=== PATIENT | female | born 1955 | race Caucasian/White ===

== ENCOUNTER → 2017-03-21 | Outpatient (CLI) | payer BC | END | disposition home or self-care (01) | LOC: GMAH 08:22 | PROVIDERS: ATTEND Family Medicine | DX: Z00.01 Encounter for general adult medical examination with abnormal findings (principal); E03.8 Other specified hypothyroidism ==

== ENCOUNTER → 2018-05-22 | Outpatient (CLI) | payer BC | LOC: GMAH 10:49 | PROVIDERS: ATTEND Family Medicine | DX: E03.8 Other specified hypothyroidism (principal) ==

== ENCOUNTER 2018-09-04 10:49 | Emergency (ER) | payer BC, OTHER ==
[2018-09-04 11:15] VITALS: TEMP 97.6
--- NOTE | 2018-09-04 11:26 | ED.PDOC ---
History of Present Illness - General Chief Complaint: Trauma Stated Complaint: Standing level fall with R arm/shoulder injury Time Seen by Provider: 09/04/18 11:20 Source: patient Exam Limitations: no limitations - History of Present Illness Initial Comments: Birgit Tate 63 y/o female came to ER with right sharp upper extremity pain after a fall at work.Stated while walking right shoes got suck on the floor lost her balance but able to brace herself with her right upper extremity to the floor but still fell and landed on her body.Denies head,neck.chest,hip leg ankle injuries but stated hurts mostly on her right shoulder joint and elbow.Denies any previous injuries in the past. Helped her get up by co-worker Timing/Duration: 1-3 hours Severity: moderate Improving Factors: rest Worsening Factors: movement Associated Symptoms: denies symptoms, other - see hpi Allergies/Adverse Reactions: Allergies Cephalexin Allergy (Verified 09/04/18 11:07) Penicillins Allergy (Verified 09/04/18 11:07) Home Medications: Ambulatory Orders Acetamin W/Cod #3 Tab [Tylenol w/CODEINE #3] 1 ea PO Q4HR PRN #30 tab 09/04/18 Calcium 600 mg PO DAILY 09/04/18 Clarithromycin 500 mg PO DAILY 09/04/18 Levothyroxine Sodium 75 mcg PO DAILY 09/04/18 Loratadine [Claritin] 10 mg PO PRN PRN 09/04/18 Metoprolol Tartrate [Lopressor] 50 mg PO DAILY 09/04/18 Niacin [Slo-Niacin] 500 mg PO DAILY 09/04/18 Review of Systems - Review of Systems Musculoskeletal: States: see HPI All other Systems: Reviewed and Negative, No Change from Baseline Past Medical History (General) - Patient Medical History Hx of COPD: No Hx Cardiac Disorders: No Hx Hypertension: Yes Hx Thyroid Disease: Yes Hx Cancer: Yes - skin Surgical History: appendectomy, tonsillectomy, other - c-sections - Vaccination History Hx Tetanus, Diphtheria Vaccination: No Hx Influenza Vaccination: No Hx Pneumococcal Vaccination: No - Social History Hx Tobacco Use: No Hx Alcohol Use: No Hx Substance Use: No Hx Substance Use Treatment: No Hx Depression: No - Female History Patient is a Female of Child Bearing Age (10 -59 yrs old): No Patient : No Family Medical History - Family History Father Living Status: Unknown Hx Cardiac Disease: Yes - dad Physical Exam - Physical Exam General Appearance: Alert, Comfortable, No apparent distress Eye Exam: bilateral normal Ears, Nose, Throat: normal ENT inspection Neck: non-tender, supple, normal inspection Respiratory: chest non-tender, lungs clear, normal breath sounds, no respiratory distress Cardiovascular/Chest: normal peripheral pulses, regular rate, rhythm, no murmur Peripheral Pulses: radial,right: 2+, radial,left: 2+ Gastrointestinal/Abdominal: non tender, soft Back Exam: no CVA tenderness, no vertebral tenderness Extremity: no pedal edema, no calf tenderness, pelvis stable, deformity - none, swelling - right shoulder joint, other - right upper Extremity-ROM limited because of pain shoulder joint,elbow and wrist,with swelling around right shoulder joint,right elbow and wrist no swelling noted.right foot/ankle no swelling noted Neurologic: alert, oriented x 3, other - neurovascular intact distally right upper extremity Skin Exam: normal color, warm/dry Progress - Progress Progress: 09/04/18 11:31 Vital Signs - 24 hr 09/04/18 11:07 Temperature 97.6 F Pulse Rate [L 73 finger] Respiratory 18 Rate Blood Pressure 140/74 [L arm] O2 Sat by Pulse 99 Oximetry - Results/Orders Results/Orders: Discuss result of shoulder x -ray with patient and want to call up insurance company for their Ortho Mds on the list - EKG/XRAY/CT XRAY: comminuted fracture right proximal shoulder - wrist-right -no fracture noted Departure - Departure Clinical Impression: Fracture, humerus, anatomical neck Qualifiers: Encounter type: initial encounter Fracture type: closed Laterality: right Qualified Code(s): S42.291A - Other displaced fracture of upper end of right humerus, initial encounter for closed fracture Fall Qualifiers: Encounter type: initial encounter Qualified Code(s): W19.XXXA - Unspecified fall, initial encounter Time of Disposition: 14:10 Disposition: Discharge to Home or Self Care Condition: Fair Departure Forms: ED Discharge - Pt. Copy, Patient Portal Self Enrollment Instructions: Shoulder Fracture, Shoulder Fracture (DC) Referrals: Vega Samaniego MD [Primary Care Provider] - 1-2 Weeks Prescriptions: Acetamin W/Cod #3 Tab [Tylenol w/CODEINE #3] 1 ea PO Q4HR PRN #30 tab PRN Reason: Pain Home Medications: Ambulatory Orders Acetamin W/Cod #3 Tab [Tylenol w/CODEINE #3] 1 ea PO Q4HR PRN #30 tab 09/04/18 Calcium 600 mg PO DAILY 09/04/18 Clarithromycin 500 mg PO DAILY 09/04/18 Levothyroxine Sodium 75 mcg PO DAILY 09/04/18 Loratadine [Claritin] 10 mg PO PRN PRN 09/04/18 Metoprolol Tartrate [Lopressor] 50 mg PO DAILY 09/04/18 Niacin [Slo-Niacin] 500 mg PO DAILY 09/04/18 Additional Instructions: Follow up with primary Md for Orthopedist referral;call up insurance company for ortho MD in network.;Return to ER as needed
[2018-09-04] MEDS ORDERED: fentaNYL CITRATE INJ 50 MCG/ML AMP IV ONE (11:48)
[2018-09-04] MEDS ORDERED: KETOROLAC TROMETHAMINE INJ 30 MG/ML VIAL IV ONE (11:48)
--- NOTE | 2018-09-04 11:55 | RAD ---
EXAM DESCRIPTION: Elbow,Right 2 Views CLINICAL HISTORY: 63 years Female, fall COMPARISON: None available. FINDINGS: The visualized bones are well-mineralized.No acute fracture or dislocation. The soft tissues appear grossly unremarkable. IMPRESSION: No acute traumatic abnormality is noted in the right elbow. Electronically signed by: Renate Mak MD 09/04/2018 11:53 AM CDT
--- NOTE | 2018-09-04 11:56 | RAD ---
EXAM DESCRIPTION: Shoulder,Left 1 View CLINICAL HISTORY: 63 years Female, fall from standing position COMPARISON: None. TECHNIQUE: Single AP view of the left shoulder was performed. FINDINGS: Limited evaluation on this single AP view. No acute fracture is grossly visualized. Mild degenerative changes are identified in the acromioclavicular joint. IMPRESSION: Limited single AP view of the left shoulder demonstrates no acute fracture. Electronically signed by: Renate Mak MD 09/04/2018 11:54 AM CDT
--- NOTE | 2018-09-04 11:57 | RAD ---
EXAM DESCRIPTION: Wrist,Right 3 Views CLINICAL HISTORY: 63 years Female, fall COMPARISON: None available. FINDINGS: The visualized bones are poorly mineralized.No acute fracture or dislocation. Degenerative changes are identified in the first carpometacarpal joint and interphalangeal joint of the thumb. The soft tissues appear grossly unremarkable. IMPRESSION: No acute traumatic abnormality is identified in the right wrist. Electronically signed by: Renate Mak MD 09/04/2018 11:55 AM CDT
--- NOTE | 2018-09-04 11:58 | RAD ---
EXAM DESCRIPTION: Shoulder,Right 1 View CLINICAL HISTORY: 63 years Female, fall COMPARISON: None. TECHNIQUE: Single AP view of the right shoulder was performed. FINDINGS: Comminuted fracture of the proximal right humerus is identified on this single AP radiograph. Degenerative changes are identified in the chromic clavicular joint. There is associated soft tissue swelling. IMPRESSION: Comminuted fracture of the proximal right humerus is identified on this single AP radiograph. Electronically signed by: Renate Mak MD 09/04/2018 11:55 AM CDT
[2018-09-04] MEDS ORDERED: ONDANSETRON ODT 8 MG TAB SL ONE (12:12)
[2018-09-04] MEDS ORDERED: HYDROmorphone HCL INJ 2 MG/ML VIAL IM ONE (12:12)
[2018-09-04] MEDS ORDERED: KETOROLAC TROMETHAMINE INJ 30 MG/ML VIAL IM ONE (12:43)
--- NOTE | 2018-09-04 13:37 | CT ---
EXAM DESCRIPTION: Upper Extremity CLINICAL HISTORY: fracture rigth shoulder COMPARISON: None Available. TECHNIQUE: Extremity CT of the right shoulder is performed with thin-section axial imaging. MPRs are created and reviewed as well. 3-dimensional reconstructions created on a dedicated workstation were created and are also maintained in the patient's medical record. FINDINGS: Complex comminuted acute fracture of the proximal humerus. The main fracture line is transverse across the surgical neck and there is impaction of the fracture fragments and anterior angulation at the fracture site. There is also an oblique sagittal fracture line through the lateral humeral head the greater and lesser tuberosities from the main portion of the humeral head. No dislocation. No glenoid involvement. IMPRESSION: Comminuted impacted and angulated fracture of the proximal humerus This exam was performed according to our departmental dose-optimization program, which includes automated exposure control, adjustment of the mA and/or kV according to patient size and/or use of iterative reconstruction technique. Electronically signed by: Kenan Paulson MD 09/04/2018 1:35 PM CDT
[2018-09-04] MEDS ORDERED: BACLOFEN 10 MG TAB PO ONE (14:36)
[2018-09-04] MEDS ORDERED: HYDROcodone 10MG/APAP 325MG 1 EA TAB PO ONE (14:36)
[2018-09-04 15:02] VITALS: BP 104/57; O2SAT 97
== END 2018-09-04 15:00 | disposition home or self-care (01) ==
LOC: ER 10:49
DX: S42.291A Other displaced fracture of upper end of right humerus, initial encounter for closed fracture (principal); I10 Essential (primary) hypertension; E07.9 Disorder of thyroid, unspecified; Z85.828 Personal history of other malignant neoplasm of skin; Z79.899 Other long term (current) drug therapy; Z88.1 Allergy status to other antibiotic agents; Z88.0 Allergy status to penicillin; W18.30XA Fall on same level, unspecified, initial encounter; Y93.01 Activity, walking, marching and hiking; Y99.0 Civilian activity done for income or pay; Y92.69 Other specified industrial and construction area as the place of occurrence of the external cause
CPT/HCPCS: 73020; 73070; 73110; 73200; J1170; J1885

== ENCOUNTER → 2019-09-07 | Outpatient (CLI) | payer SELFPAY | LOC: GMA MATASK 15:24 | PROVIDERS: ATTEND Family Medicine | DX: E03.8 Other specified hypothyroidism (principal); E78.2 Mixed hyperlipidemia; I10 Essential (primary) hypertension ==

== ENCOUNTER → 2020-03-15 | Outpatient (CLI) | payer MEDICARE | LOC: GMA MATASK 10:51 | PROVIDERS: ATTEND Family Medicine | DX: I10 Essential (primary) hypertension (principal); E03.8 Other specified hypothyroidism ==